=== PATIENT | male | born 1970 | race African-American/Black ===

== ENCOUNTER 2021-09-05 10:28 | Emergency (ER) | payer SELFPAY ==
[2021-09-05 10:40] VITALS: BP 123/68; PULSE 66; TEMP 98.7; BMI 23.0
[2021-09-06 12:07] LABS: SARS-CoV-2 NAA Detected (Not Detected)
== END 2021-09-05 11:28 | disposition home or self-care (01) ==
LOC: JER 10:28
DX: U07.1 COVID-19 (principal)
CPT/HCPCS: 87804; 99283-25; C9803; U0003; U0005